=== PATIENT | male | born 1990 | race Caucasian/White ===

== ENCOUNTER 2023-10-26 02:59 | Emergency (ER) | payer SELFPAY ==
[~2023-10-26] VITALS: Ht 177.8 cm; Wt 108.9 kg
[2023-10-26 03:00] VITALS: BP_SYST 153; PULSE 103; RESP 18; TEMP 98; O2SAT 98
[2023-10-26 03:22] VITALS: BP_SYST 153; PULSE 103; RESP 18; TEMP 98; O2SAT 98
== END 2023-10-26 03:22 ==
LOC: SED 02:59
DX: Z00.8 Encounter for other general examination (principal)
CPT/HCPCS: 99283